=== PATIENT | female | born 1970 | race Caucasian/White ===

== ENCOUNTER 2017-02-17 00:56 | Emergency (ER) | payer BC, OTHER ==
[~2017-02-17] VITALS: Ht 165.1 cm; Wt 95.5 kg
[2017-02-17 02:13] LABS: ADD MIUA? YES; BILIRUBIN NEGATIVE; BLOOD LARGE; COLOR AMBER ((YELLOW)); GLUCOSE (STRIP) NEGATIVE; KETONES NEGATIVE; LEUKOCYTES MODERATE; NITRITE POSITIVE; PROTEIN (STRIP) 100; SPECIFIC GRAVITY 1.024 (1.000-1.030)
[2017-02-17 02:27] LABS: BACTERIA RARE /HPF; EPITHELIAL CELLS RARE /HPF; MUCUS TRACE /LPF; RED BLOOD CELLS 30-40 /HPF (0-5); UCUL ADDED? NO; UNCLASSIFIED CRYSTALS 1+ /HPF; WHITE BLOOD CELLS 30-40 /HPF (0-5)
[2017-02-17] MEDS ORDERED: CIPRO500 MG PO (02:54)
[2017-02-17] MEDS ORDERED: PYRIDIUM200 MG PO (02:54)
[2017-02-17 03:35] VITALS: BP 116/66
== END 2017-02-17 03:36 | disposition home or self-care (01) ==
LOC: EME 00:56
DX: N39.0 Urinary tract infection, site not specified (principal); Z87.440 Personal history of urinary (tract) infections
CPT/HCPCS: 81003; 87077; 87086; 87186; 99281; 99283

== ENCOUNTER 2017-04-21 21:17 | Emergency (ER) | payer BC, OTHER ==
[~2017-04-21] VITALS: Ht 165.1 cm; Wt 96.6 kg
[~2017-04-21 21:17] MED LIST: CIPRO500 MG PO; PYRIDIUM200 MG PO
[2017-04-21 21:50] LABS: HEMATOCRIT 40.5 % (36.0-46.0); MCH 28.7 PG (29.0-34.0); MCHC 33.8 G/DL (30.0-36.0); MCV 84.7 FL (83-99); MEAN PLAT.VOLUME 9.3 uM^3 (9.5-12.4); PLATELET COUNT 214 K/uL (156-360); RBC DIS.WIDTH-CV 13.2 % (11.8-14.6); RBC DIS.WIDTH-SD 41.4 % (39-53); RED BLOOD COUNT 4.78 M/uL (3.80-5.20); WHITE BLOOD COUNT 5.9 K/uL (4.1-10.2)
[2017-04-21 22:00] LABS: CHLORIDE 105 mEq/L (99-109); POTASSIUM 3.8 mEq/L (3.7-5.4); SODIUM 140 mEq/L (136-147)
[2017-04-21 22:01] LABS: GLUCOSE 100 mg/dL (70-99)
[2017-04-21 22:03] LABS: ANION GAP 10 MEQ/L (2-14)
[2017-04-21 22:05] LABS: GFR ESTIMATE (CALCULATED) > 59 mL/min/
[2017-04-21 22:06] LABS: UREA NITROGEN (BUN) 11 mg/dL (9-23)
[2017-04-21 22:12] LABS: TROP-I INTERPRETATION NEGATIVE; TROPONIN-I < 0.01 ng/mL (0.0-0.30)
[2017-04-21 22:45] VITALS: BP 118/68
== END 2017-04-21 22:49 | disposition home or self-care (01) ==
LOC: EME 21:17
DX: R07.89 Other chest pain (principal); M94.0 Chondrocostal junction syndrome [Tietze]
CPT/HCPCS: 71020; 80048; 84484; 85027; 93005; 99281; 99284; J1885

== ENCOUNTER 2018-07-07 06:29 | Day surgery (SDC) | payer MEDICARE, OTHER ==
[~2018-07-07] VITALS: Ht 163.8 cm; Wt 81.6 kg
[~2018-07-07 06:29] MED LIST changes: +TYLENOL EXTRA500 MG PO
[2018-07-07 08:02] VITALS: BP 114/67
[2018-07-07 10:06] VITALS: BP 118/59
[2018-07-07 10:40] VITALS: BP 112/66
== END 2018-07-07 10:45 | disposition home or self-care (01) ==
LOC: SDC 06:29
DX: L72.0 Epidermal cyst (principal); I10 Essential (primary) hypertension; Z88.0 Allergy status to penicillin; Z88.1 Allergy status to other antibiotic agents; Z88.2 Allergy status to sulfonamides
CPT/HCPCS: 88304; J2250; J2405; J3010; S0020; S0074